=== PATIENT | male | born 1990 | race Caucasian/White ===

== ENCOUNTER 2016-09-18 09:22 | Emergency (ER) | payer SELFPAY ==
[2016-09-18] MEDS ORDERED: IBUPROFEN 600 MG TABLET PO ONE (09:47)
[2016-09-18] MEDS ORDERED: ONDANSETRON 4 MG TAB.RAPDIS SL ONE (09:48)
--- NOTE | 2016-09-18 09:49 | ER Document Report ---
ED Medical Screen (RME) - General Chief Complaint: Laceration Stated Complaint: WC/FINGER PAIN Time seen by provider: 09:47 Mode of Arrival: Ambulatory Information source: Patient TRAVEL OUTSIDE OF THE [place] IN LAST 30 DAYS: No - HPI Patient complains to provider of: right thumb laceration, syncopal episode with head injury Onset: Just prior to arrival Onset/Duration: Sudden Quality of pain: Achy Severity: Moderate Pain Level: 3 Exacerbated by: Denies Relieved by: Denies Notes: 09/18/16 09:48 Patient is a 26-year-old male who presents to the emergency room complaining of a laceration to his right common, states he was throwing a old toilet into a dumpster when he cut his hand on it, he immediately got nauseated and passed out , causing him to hit his head on the concrete ground, complaints of headache, with continued nausea, last tetanus shot was one year ago - Related Data Allergies/Adverse Reactions: No Known Allergies Allergy (Verified 09/18/16 09:41) Past Medical History - Past Medical History Cardiac Medical History: Denies: Hx Atrial Fibrillation, Hx Congestive Heart Failure, Hx Coronary Artery Disease, Hx DVT, Hx Heart Attack Pulmonary Medical History: Denies: Hx Asthma, Hx Bronchitis, Hx Pneumonia, Hx Intubation Neurological Medical History: Denies: Hx Cerebrovascular Accident, Hx Migraine, Hx Seizures Endocrine Medical History: Denies: Hx Diabetes Mellitus Type 1, Hx Diabetes Mellitus Type 2, Hx Graves' Disease Renal/ Medical History: Reports: Hx Kidney Stones. Denies: Hx Benign Prostatic Hyperplasia, Hx End Stage Renal Disease, Hx Epididymitis, Hx Peritoneal Dialysis Malignancy Medical History: Denies Hx Bone Cancer, Denies Hx Brain Cancer, Denies Hx Colorectal Cancer, Denies Hx Leukemia, Denies Hx Liver Cancer GI Medical History: Denies: Hx Cirrhosis, Hx Crohn's Disease, Hx Diverticulitis , Hx Gastritis, Hx Gastroesophageal Reflux Disease Musculoskeltal Medical History: Denies Hx Arthritis, Denies Hx Fibromyalgia, Denies Hx Gout, Denies Hx Multiple Sclerosis Skin Medical History: Denies Hx Cellulitis, Denies Hx Eczema, Denies Hx MRSA, Denies Hx Psoriasis Psychiatric Medical History: Denies: Hx Attention Deficit Hyperactivity Disorder, Hx Bipolar Disorder, Hx Borderline Personality Disorder Traumatic Medical History: Denies: Hx Fractures, Hx Gunshot Wound, Hx Liver Laceration, Hx Pneumothorax Infectious Medical History: Denies: Hx C-Diff, Hx HIV, Hx MRSA, Hx VRE Past Surgical History: Denies: Hx Abdominal Surgery, Hx Adenoidectomy, Hx Bowel Diversion - Immunizations Immunizations up to date: Yes Hx Diphtheria, Pertussis, Tetanus Vaccination: Yes Physical Exam - Vital signs Vitals: Temp Pulse Resp BP Pulse Ox 97.8 F 52 L 18 111/66 100 09/18/16 09:41 09/18/16 09:41 09/18/16 09:41 09/18/16 09:41 09/18/16 09:41 Course - Vital Signs Vital signs: Temp Pulse Resp BP Pulse Ox 97.8 F 52 L 18 111/66 100 09/18/16 09:41 09/18/16 09:41 09/18/16 09:41 09/18/16 09:41 09/18/16 09:41
[2016-09-18] MEDS ORDERED: LIDOCAINE 1% INJ-PF (10 MG/ML) 30 ML SDV INJ ONE (10:40)
--- NOTE | 2016-09-18 10:48 | ER Document Report ---
ED General - General Chief Complaint: Laceration Stated Complaint: WC/FINGER PAIN Time seen by provider: 10:42 Mode of Arrival: Ambulatory Information source: Patient Notes: 26-year-old male who was loading an old toilet in a dumpster when it broke the patient suffered a laceration from a sharp piece of porcelain on his right thumb. Incident occurred shortly prior to arrival. Patient says was copious bleeding at this time and he wrapped it and then felt faint and passed out for about 15 seconds. The patient reports he has passed out in the past at the site of blood and when he came to he had no confusion feels well now. He says he suffers superficial cut to his right eyebrow and fell but has no complaints now of pain except on his thumb. He reports being in normal state of health otherwise recently Physical Exam: General: Alert, appears well. HEENT: Normocephalic. 1 cm very superficial abrasion to the lateral right eyebrow with no active bleeding. There is slight surrounding ecchymosis area no bony deformities palpated face otherwise no raccoon eyes or Parikh sign no otorhinorrhea. PERRLA. Extraocular movements intact. Discs sharp no papilledema tympanic membranes and canals clear Oropharynx clear. Neck: Supple. Non-tender. Good range of motion without discomfort Respiratory: No respiratory distress. Clear and equal breath sounds bilaterally. Cardiovascular: Regular rate and rhythm. Abdominal: Normal Inspection. Soft, non-tender. No distension. Normal Bowel Sounds. Back: Non-tender. No deformity or step off. Extremities: All extremities warm with no gross deformities with the exception of the right thumb. There is a 1.5 cm laceration over the IP joint on the radial side with minimal active bleeding. 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 Normal Mood. Skin: Warm. Dry. Normal color. TRAVEL OUTSIDE OF THE [place] IN LAST 30 DAYS: No - Related Data Allergies/Adverse Reactions: No Known Allergies Allergy (Verified 09/18/16 09:41) Past Medical History - General Information source: Patient - Social History Smoking Status: Former Smoker Family History: Reviewed & Not Pertinent Patient has suicidal ideation: No Patient has homicidal ideation: No - Past Medical History Cardiac Medical History: Denies: Hx Atrial Fibrillation, Hx Congestive Heart Failure, Hx Coronary Artery Disease, Hx DVT, Hx Heart Attack Pulmonary Medical History: Denies: Hx Asthma, Hx Bronchitis, Hx Pneumonia, Hx Intubation Neurological Medical History: Denies: Hx Cerebrovascular Accident, Hx Migraine, Hx Seizures Endocrine Medical History: Denies: Hx Diabetes Mellitus Type 1, Hx Diabetes Mellitus Type 2, Hx Graves' Disease Renal/ Medical History: Reports: Hx Kidney Stones. Denies: Hx Benign Prostatic Hyperplasia, Hx End Stage Renal Disease, Hx Epididymitis, Hx Peritoneal Dialysis Malignancy Medical History: Denies Hx Bone Cancer, Denies Hx Brain Cancer, Denies Hx Colorectal Cancer, Denies Hx Leukemia, Denies Hx Liver Cancer GI Medical History: Denies: Hx Cirrhosis, Hx Crohn's Disease, Hx Diverticulitis , Hx Gastritis, Hx Gastroesophageal Reflux Disease Musculoskeltal Medical History: Denies Hx Arthritis, Denies Hx Fibromyalgia, Denies Hx Gout, Denies Hx Multiple Sclerosis Skin Medical History: Denies Hx Cellulitis, Denies Hx Eczema, Denies Hx MRSA, Denies Hx Psoriasis Psychiatric Medical History: Denies: Hx Attention Deficit Hyperactivity Disorder, Hx Bipolar Disorder, Hx Borderline Personality Disorder Traumatic Medical History: Denies: Hx Fractures, Hx Gunshot Wound, Hx Liver Laceration, Hx Pneumothorax Infectious Medical History: Denies: Hx C-Diff, Hx HIV, Hx MRSA, Hx VRE Past Surgical History: Denies: Hx Abdominal Surgery, Hx Adenoidectomy, Hx Bowel Diversion - Immunizations Immunizations up to date: Yes Hx Diphtheria, Pertussis, Tetanus Vaccination: Yes Review of Systems - Review of Systems Constitutional: denies: Chills, Fever EENT: denies: Ear pain, Throat pain Cardiovascular: Syncope. denies: Chest pain, Dyspnea Respiratory: denies: Cough, Short of breath, Wheezing Gastrointestinal: denies: Abdominal pain, Diarrhea, Nausea, Vomiting Genitourinary: denies: Burning Musculoskeletal: See HPI. denies: Back pain Skin: No symptoms reported Hematologic/Lymphatic: denies: Swollen glands Neurological/Psychological: denies: Weakness, Numbness Physical Exam - Vital signs Vitals: Temp Pulse Resp BP Pulse Ox 97.8 F 52 L 18 111/66 100 09/18/16 09:41 09/18/16 09:41 09/18/16 09:41 09/18/16 09:41 09/18/16 09:41 Course - Re-evaluation Re-evalutation: 09/18/16 12:17 Patient tolerated suture repair without difficulty he is instructed return in 7 days for suture removal - Vital Signs Vital signs: Temp Pulse Resp BP Pulse Ox 97.8 F 52 L 18 111/66 100 09/18/16 09:41 09/18/16 09:41 09/18/16 09:41 09/18/16 09:41 09/18/16 09:41 Procedures - Laceration/Wound Repair Right Thumb Wound length (cm): 1.5 Wound's Depth, Shape: Linear Laceration pre-procedure: Betadine prep applied, Sterile drapes applied Anesthetic type: 1% Lidocaine Volume Anesthetic (mLs): 1 Wound explored: Clean Irrigated w/ Saline (mLs): 30 - under high pressure from 25-gauge needle Wound Debrided: Minimal Wound Repaired With: Sutures Suture Size/Type: 4:0 Number of Sutures: 4 Layer Closure?: No Post-procedure wound care: Sterile dressing applied Post-procedure NV exam normal: Yes Complications: No Notes: 09/18/16 12:17 Wound base was easily visualized. There is moderate venous bleeding during exploration is easily controlled after suture repair. No foreign bodies were identified Discharge - Discharge Clinical Impression: Laceration Condition: Stable Disposition: HOME, SELF-CARE Instructions: Laceration Care ([facility]) Additional Instructions: Return to emergency department in 7 days for suture removal or earlier for redness or swelling to the area of the laceration
[2016-09-18 13:09] VITALS: BP 115/62
== END 2016-09-18 13:00 | disposition home or self-care (01) ==
LOC: ER 09:22
PROC: 0HQFXZZ Repair Right Hand Skin, External Approach (ICD-10-PCS; principal; 2016-09-18)
DX: S61.011A Laceration without foreign body of right thumb without damage to nail, initial encounter (principal); W45.8XXA Other foreign body or object entering through skin, initial encounter; Y93.89 Activity, other specified; Y99.0 Civilian activity done for income or pay; S00.11XA Contusion of right eyelid and periocular area, initial encounter; W19.XXXA Unspecified fall, initial encounter; R55 Syncope and collapse; Z87.891 Personal history of nicotine dependence
CPT/HCPCS: 99283; 70450; 12001; S0119

== ENCOUNTER 2016-11-29 09:34 | Emergency (ER) | payer SELFPAY ==
--- NOTE | 2016-11-29 10:07 | ER Document Report ---
ED Headache - General Chief Complaint: Headache Stated Complaint: HEADACHE Time Seen by Provider: 11/29/16 09:47 Mode of Arrival: Ambulatory Information source: Patient Notes: 26-year-old male presents to ED for complaint of a headache that gets worse when he stands or bends forward. States she was having sex 5 days ago with his and ultimately he felt a tremendous pop in the back of his head so he jumped up and then fell down to his knees. The only time he gets any relief from the headache is when he is sitting up pain in his head back but he still has some of the headache then. Any history of headaches before this. TRAVEL OUTSIDE OF THE [place] IN LAST 30 DAYS: No - HPI Patient complains to provider of: Headache Patient reports: Other - Headache since feeling a pop in the back of his head during sex Onset: Other - 5 days ago Onset was: Abrupt Timing: Still present - When he stands up or leans forward Quality of pain: Sharp, Throbbing Severity: Moderate Pain Level: 4 - Related Data Allergies/Adverse Reactions: No Known Allergies Allergy (Verified 09/18/16 09:41) Past Medical History - General Information source: Patient - Social History Smoking Status: Current Every Day Smoker Cigarette use (# per day): Yes - Pack per day Chew tobacco use (# tins/day): No Smoking Education Provided: Yes - Less than 2 minutes Frequency of alcohol use: Rare Drug Abuse: None 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 denies: CAD, COPD, CVA, DM, Hyperlipidemia Patient has suicidal ideation: No Patient has homicidal ideation: No - Past Medical History Cardiac Medical History: Reports: None Pulmonary Medical History: Reports: None EENT Medical History: Reports: None Neurological Medical History: Reports: None Endocrine Medical History: Reports: None Renal/ Medical History: Reports: Hx Kidney Stones Malignancy Medical History: Reports None GI Medical History: Reports: None Musculoskeltal Medical History: Reports Hx Arthritis Skin Medical History: Reports None Psychiatric Medical History: Reports: None Traumatic Medical History: Reports: Hx Fractures - Fractured fourth and fifth finger Infectious Medical History: Reports: None Surgical Hx: Negative Past Surgical History: Reports: None - Immunizations Immunizations up to date: Yes Hx Diphtheria, Pertussis, Tetanus Vaccination: Yes Review of Systems - Review of Systems Constitutional: No symptoms reported EENT: No symptoms reported Cardiovascular: No symptoms reported Respiratory: No symptoms reported Gastrointestinal: No symptoms reported Genitourinary: No symptoms reported Male Genitourinary: No symptoms reported Musculoskeletal: No symptoms reported Skin: No symptoms reported Hematologic/Lymphatic: No symptoms reported Neurological/Psychological: Headaches -: Yes All other systems reviewed and negative Physical Exam - Vital signs Vitals: Temp Pulse Resp BP Pulse Ox 98.1 F 87 14 124/80 98 11/29/16 09:36 11/29/16 09:36 11/29/16 09:36 11/29/16 09:36 11/29/16 09:36 Interpretation: Normal - General General appearance: Appears well, Alert - HEENT Head: Normocephalic, Atraumatic Eyes: Normal Pupils: PERRL Visual reilly normal: Yes Ears: Normal External canal: Normal Tympanic membrane: Normal Sinus: Normal Nasal: Normal Mouth/Lips: Normal Mucous membranes: Normal Pharynx: Normal Neck: Normal - Respiratory Respiratory status: No respiratory distress Chest status: Nontender Breath sounds: Normal Chest palpation: Normal - Cardiovascular Rhythm: Regular Heart sounds: Normal auscultation Murmur: No - Abdominal Inspection: Normal Distension: No distension Bowel sounds: Normal Tenderness: Nontender Organomegaly: No organomegaly - Back Back: Normal, Nontender - Extremities General upper extremity: Normal inspection, Nontender, Normal color, Normal ROM , Normal temperature General lower extremity: Normal inspection, Nontender, Normal color, Normal ROM , Normal temperature, Normal weight bearing. No: Kyra's sign - Neurological Neuro grossly intact: Yes Cognition: Normal Orientation: AAOx4 [place] Coma Scale Eye Opening: Spontaneous [place] Coma Scale Verbal: Oriented [place] Coma Scale Motor: Obeys Commands [place] Coma Scale Total: 15 Speech: Normal Cranial nerves: Normal Cerebellar coordination: Normal Motor strength normal: LUE, RUE, LLE, RLE Babinski reflex: Normal (flexor plantar) Sensory: Normal Biceps - Reflex grade: 2 = Normal Triceps - Reflex grade: 2 = Normal Brachioradialis - Reflex grade: 2 = Normal Knee - Reflex grade: 2 = Normal Ankle - Reflex grade: 2 = Normal - Psychological Associated symptoms: Normal affect, Normal mood - Skin Skin Temperature: Warm Skin Moisture: Dry Skin Color: Normal Course - Re-evaluation Re-evalutation: 11/29/16 10:27 Had negative. Will instruct patient to use ibuprofen and Tylenol for his headache will write a prescription for ibuprofen and to follow-up with his primary doctor. Consulted Dr. Kumar. He states if the patient is negative CT and negative neuro assessment 5 days out and he should be safe to send home but to have follow-up if his headache continues. Discharged home with prescription for ibuprofen. - Vital Signs Vital signs: Temp Pulse Resp BP Pulse Ox 98.1 F 87 14 124/80 98 11/29/16 09:36 11/29/16 09:36 11/29/16 09:36 11/29/16 09:36 11/29/16 09:36 - Diagnostic Test Radiology reviewed: Image reviewed, Reports reviewed Discharge - Discharge Clinical Impression: Headache Qualifiers: Headache type: unspecified Headache chronicity pattern: unspecified pattern Intractability: not intractable Qualified Code(s): R51 - Headache Condition: Stable Disposition: HOME, SELF-CARE Instructions: Family Physicians / Practices Additional Instructions: HEADACHE: The physician does not feel that the headache you are experiencing has a serious underlying cause. Most headaches are due to emotional stress, with resultant muscle tension (tension headache). Occasionally, headaches are secondary to changes in the blood vessels of the scalp (vascular headache and migraine headache). Sometimes, a headache is the first symptom of another developing illness, such as a viral infection. You have no evidence of stroke, bleeding, meningitis, or other serious cause of your headache. The treatment of headaches varies with the severity and cause of the pain. Not all headaches need pain shots. In fact, there is evidence that using narcotics for headaches may make them worse in the long run. The physician will determine the therapy that's in your best interest. If you develop a fever, if the headache is different from any you've previously experienced, or if the headache progressively worsens, then call your physician at once or go to the emergency room. Acetaminophen Acetaminophen may be taken for pain relief or fever control. It's much safer than aspirin, offering a wider range of "safe" dosages. It is safe during . Some brand names are Tylenol, Panadol, Datril, Anacin 3, Tempra, and Liquiprin. Acetaminophen can be repeated every four hours. The following are maximum recommended dosages: WEIGHT Dose Drops Elixir Chewable( 80mg) (LBS.) drprs=droppers tsp=teaspoon 6 40 mg .4 ml (1/2) 6-11 80 mg .8 ml (full) 1/2 tsp 1 tab 12-16 120 mg 1 1/2 drprs 3/4 tsp 1 1/2 tabs 17-23 160 mg 2 drprs 1 tsp 2 tabs 24-30 240 mg 3 drprs 1 1/2 tsp 3 tabs 30-35 320 mg 2 tsp 4 tabs 36-41 360 mg 2 1/4 tsp 4 1 /2 tabs 42-47 400 mg 2 1/2 tsp 5 tabs 48-53 480 mg 3 tsp 6 tabs 54-59 520 mg 3 1/4 tsp 6 1 /2 tabs 60-64 560 mg 3 1/2 tsp 7 tabs 65-70 600 mg 3 3/4 tsp 7 1 /2 tabs 71-76 640 mg 4 tsp 8 tabs 77-82 720 mg 4 1/2 tsp 9 tabs 83-88 800 mg 5 tsp 10 tabs >89 pounds or adults 650 mg to 900 mg Acetaminophen can be repeated every four hours. Maximum daily dose not to exceed 4000 mg. These maximum recommended dosages are slightly higher than the dosages written on the product container, but these dosages are very safe and well below the toxic dosage for acetaminophen. FOLLOW-UP CARE: If you have been referred to a physician for follow-up care, call the physician s office for an appointment as you were instructed or within the next two days. If you experience worsening or a significant change in your symptoms, notify the physician immediately or return to the Emergency Department at any time for re-evaluation. Prescriptions: Ibuprofen 800 mg PO Q8HP PRN #14 tablet PRN Reason: Forms: Smoking Cessation Education, Return to Work
--- NOTE | 2016-11-29 10:21 | RADIOLOGY REPORT (SQ) ---
EXAM DESCRIPTION: CT HEAD WITHOUT COMPLETED DATE/TIME: 11/29/2016 10:09 am REASON FOR STUDY: "pop" in back of head continued pain COMPARISON: None. TECHNIQUE: Axial images acquired through the brain without intravenous contrast. Images reviewed wi th bone, brain and subdural windows. Images stored on PACS. All CT scanners at this facility use dose modulation, iterative reconstruction, and/or weight based d osing when appropriate to reduce radiation dose to as low as reasonably achievable (ALARA). [facility]: Dose Right [facility]: CareDose [facility]: Dose Right [facility]: Teradose 4D [facility]: Flomio RADIATION DOSE: Up-to-date CT equipment and radiation dose reduction techniques were employed. CTDIv ol: 64.6 mGy. DLP: 1034 mGy-cm. mGy. LIMITATIONS: None. FINDINGS: VENTRICLES: Normal size and contour. CEREBRUM: No masses. No hemorrhage. No midline shift. Normal bowling/white matter differentiation. N o evidence for acute infarction. CEREBELLUM: No masses. No hemorrhage. No alteration of density. No evidence for acute infarction. EXTRAAXIAL SPACES: No fluid collections. No masses. ORBITS AND GLOBE: No intra- or extraconal masses. Normal contour of globe without masses. CALVARIUM: No fracture. PARANASAL SINUSES: No fluid or mucosal thickening. SOFT TISSUES: No mass or hematoma. OTHER: No other significant finding. IMPRESSION: NORMAL BRAIN CT WITHOUT CONTRAST. TECHNICAL DOCUMENTATION: JOB ID: [id number] Quality ID # [id number]: Final reports with documentation of one or more dose reduction techniques (e.g., Au tomated exposure control, adjustment of the mA and/or kV according to patient size, use of iterative reconstruction technique) 2010 [employer]- All Rights Reserved
[2016-11-29 10:46] VITALS: BP 109/68
== END 2016-11-29 10:47 | disposition home or self-care (01) ==
LOC: ER 09:34
DX: R51 Headache (principal); F17.210 Nicotine dependence, cigarettes, uncomplicated; Z87.442 Personal history of urinary calculi
CPT/HCPCS: 70450; 99284

== ENCOUNTER 2018-09-17 22:10 | Emergency (ER) | payer OTHER ==
--- NOTE | 2018-09-17 22:56 | RADIOLOGY REPORT (SQ) ---
EXAM DESCRIPTION: XR HAND 3 OR MORE VIEWS COMPLETED DATE/TME: 09/17/2018 00:00 CLINICAL HISTORY: 28 years, Male, injury COMPARISON: None. NUMBER OF VIEWS: 3 TECHNIQUE: 3 view right hand LIMITATIONS: None. FINDINGS: There is an old healed fracture of the fifth metacarpal. Subtle lucency associated with the base of the fourth metacarpal, suspicious for nondisplaced fracture. Correlate with site of pain. Mild soft tissue swelling. IMPRESSION: Nondisplaced fracture of the base of the fourth metacarpal. Old fifth metacarpal fracture. copyright 2010 [employer] All Rights Reserved
[2018-09-17] MEDS ORDERED: IBUPROFEN 600 MG TABLET PO ONE (23:28)
--- NOTE | 2018-09-18 00:05 | ER Document Report ---
HPI - HPI Patient complains to provider of: right hand pain Time Seen by Provider: 09/17/18 23:28 Pain Level: 3 Context: Patient is a 28-year-old male presents to the emergency department for right hand. Patient states at 9:00 this morning he punched a door. States he has had pain in the dorsal aspect of his medial left hand which is why he presents to the emergency department. Patient states he has a history of a fracture to his right hand in the past. States he is unsure exactly where the fracture was located. Patient is denying any injuries or any other trauma. Past Medical History - General Information source: Patient - Social History Smoking Status: Unknown if Ever Smoked Family History: Arthritis, Hypertension, Malignancy, Thyroid Disfunction. denies: CAD, COPD, CVA, DM, Hyperlipidemia - Past Medical History Cardiac Medical History: Denies: Hx Atrial Fibrillation, Hx Congestive Heart Failure, Hx Heart Attack Pulmonary Medical History: Denies: Hx Asthma, Hx Bronchitis, Hx Pneumonia Neurological Medical History: Denies: Hx Migraine, Hx Seizures Endocrine Medical History: Denies: Hx Diabetes Mellitus Type 1, Hx Diabetes Mellitus Type 2 Renal/ Medical History: Reports: Hx Kidney Stones. Denies: Hx End Stage Renal Disease, Hx Peritoneal Dialysis GI Medical History: Denies: Hx Gastroesophageal Reflux Disease Musculoskeletal Medical History: Reports Hx Arthritis Psychiatric Medical History: Denies: Hx Attention Deficit Hyperactivity Disorder, Hx Bipolar Disorder Traumatic Medical History: Reports: Hx Fractures - Fractured fourth and fifth finger Past Surgical History: Denies: Hx Abdominal Surgery - Immunizations Immunizations up to date: Yes Hx Diphtheria, Pertussis, Tetanus Vaccination: Yes Vertical Provider Document - CONSTITUTIONAL Agree With Documented VS: Yes Notes: GENERAL: Alert, interacts well. No acute distress. HEAD: Normocephalic, atraumatic. EYES: Pupils equal, round, and reactive to light. Extraocular movements intact. ENT: Oral mucosa moist, tongue midline. NECK: Full range of motion. Supple. Trachea midline. LUNGS: Clear to auscultation bilaterally, no wheezes, rales, or rhonchi. No respiratory distress. HEART: Regular rate and rhythm. No murmur ABDOMEN: Soft, non-tender. Non-distended. Bowel sounds present in all 4 quadrant s. EXTREMITIES: Moves all 4 extremities spontaneously. normal radial and dorsalis pedis pulses bilaterally. No cyanosis. Swelling and minor L ecchymosis noted dorsal aspect medial right hand. Full range of motion right wrist and all 5 fingers on the right hand. Patient is able to make a fist fully extend all fingers. Capillary refill less than 2 seconds distally all 5 fingers right hand. BACK: no cervical, thoracic, lumbar midline tenderness. No saddle anesthesia, normal distal neurovascular exam. NEUROLOGICAL: Alert and oriented x3. Normal speech. cranial nerves II through XII grossly intact PSYCH: Normal affect, normal mood. SKIN: Warm, dry, normal turgor. No rashes or lesions noted. - INFECTION CONTROL TRAVEL OUTSIDE OF THE [place] IN LAST 30 DAYS: No Course - Re-evaluation Re-evalutation: 09/18/18 00:03 Hand X-Ray 09/17/18 00:00 IMPRESSION: Nondisplaced fracture of the base of the fourth metacarpal. Old fifth metacarpal fracture. copyright 2010 [employer]- All Rights Reserved Ulnar gutter placed patient's right upper extremity. Discussed close follow-up with orthopedics. Patient stable for discharge. - Vital Signs Vital signs: Temp Pulse Resp BP Pulse Ox 97.8 F 62 18 122/80 98 09/17/18 22:44 09/17/18 22:44 09/17/18 22:44 09/17/18 22:44 09/17/18 22:44 Procedures - Immobilization Right upper extremity Pre-Proc Neuro Vasc Exam: Normal Immobilizer type: Ulnar Performed by: Provider assisted Post-Proc Neuro Vasc Exam: Normal Alignment checked and good: Yes Discharge - Discharge Clinical Impression: Fracture of fourth metacarpal bone of right hand Qualifiers: Encounter type: initial encounter Fracture type: closed Metacarpal location: base Fracture alignment: nondisplaced Qualified Code(s): S62.344A - Nondisplaced fracture of base of fourth metacarpal bone, right hand, initial encounter for closed fracture Condition: Stable Disposition: HOME, SELF-CARE Instructions: Fractured Metacarpal ([facility]) Additional Instructions: As we discussed you have been seen and treated in the emergency department for fracture to your right hand. Please make sure you are ulnar gutter splint until you follow-up with orthopedics. Phone numbers and addresses will be provided in this packet. Please make sure you take [id number] Tylenol or Motrin for generalized pain. Please return to the emergency room for any other concerning symptoms. Forms: Return to Work Referrals: LATISHA KLEIN, [ACTIVE STAFF] - Follow up as needed
[2018-09-18 00:22] VITALS: BP 111/79
== END 2018-09-18 00:32 | disposition home or self-care (01) ==
LOC: ER 22:10
DX: S62.344A Nondisplaced fracture of base of fourth metacarpal bone, right hand, initial encounter for closed fracture (principal); W22.8XXA Striking against or struck by other objects, initial encounter
CPT/HCPCS: 99283

== ENCOUNTER 2018-09-29 08:00 | Emergency (ER) | payer OTHER ==
[2018-09-29 08:06] VITALS: BP 118/73
--- NOTE | 2018-09-29 08:54 | ER Document Report ---
ED Oral Problem - General Chief Complaint: Dental Injury Stated Complaint: BROKEN TOOTH Time Seen by Provider: 09/29/18 08:54 TRAVEL OUTSIDE OF THE [place] IN LAST 30 DAYS: No - HPI Notes: 8/10 throbbing right upper premolar pain sharp in nature without radiation nothing because it better or worse. Patient has known poor dentition and previously broken tooth. Patient scheduled to see his dentist in 3 days. But says the pain is getting so bad not sure what he can do. Denies fever chills facial swelling or other symptoms. - Related Data Allergies/Adverse Reactions: No Known Allergies Allergy (Verified 09/18/16 09:41) Past Medical History - Social History Smoking Status: Unknown if Ever Smoked Family History: Arthritis, Hypertension, Malignancy, Thyroid Disfunction. denies: CAD, COPD, CVA, DM, Hyperlipidemia - Past Medical History Cardiac Medical History: Denies: Hx Atrial Fibrillation, Hx Congestive Heart Failure, Hx Heart Attack Pulmonary Medical History: Denies: Hx Asthma, Hx Bronchitis, Hx Pneumonia Neurological Medical History: Denies: Hx Migraine, Hx Seizures Endocrine Medical History: Denies: Hx Diabetes Mellitus Type 1, Hx Diabetes Mellitus Type 2 Renal/ Medical History: Reports: Hx Kidney Stones. Denies: Hx End Stage Renal Disease, Hx Peritoneal Dialysis GI Medical History: Denies: Hx Gastroesophageal Reflux Disease Musculoskeletal Medical History: Reports Hx Arthritis Psychiatric Medical History: Denies: Hx Attention Deficit Hyperactivity Disorder, Hx Bipolar Disorder Traumatic Medical History: Reports: Hx Fractures - Fractured fourth and fifth finger Past Surgical History: Denies: Hx Abdominal Surgery - Immunizations Immunizations up to date: Yes Hx Diphtheria, Pertussis, Tetanus Vaccination: Yes Review of Systems - Review of Systems EENT: Dental problem Physical Exam - Vital signs Vitals: Temp Pulse Resp BP Pulse Ox 97.8 F 63 17 118/73 100 09/29/18 08:05 09/29/18 08:05 09/29/18 08:05 09/29/18 08:05 09/29/18 08:05 - Notes Notes: PHYSICAL EXAMINATION: GENERAL: Well-appearing, well-nourished and in no acute distress. HEAD: Atraumatic, normocephalic. EYES: Pupils equal round and reactive to light, extraocular movements intact, sclera anicteric, conjunctiva are normal. ENT: Poor dentition throughout no swelling or fluctuance noted mouth, no facial asymmetry NECK: Normal range of motion, supple without lymphadenopathy NEUROLOGICAL: Cranial nerves grossly intact. Normal speech, normal gait. Normal sensory and motor exams. PSYCH: Normal mood, normal affect. SKIN: Warm, Dry, normal turgor, no rashes or lesions noted. Course - Re-evaluation Re-evalutation: 09/29/18 08:57 28-year-old male presents with dental pain. No signs of infection no swelling no fluctuance noted. Will be given penicillin and analgesia. - Vital Signs Vital signs: Temp Pulse Resp BP Pulse Ox 97.8 F 63 17 118/73 100 09/29/18 08:05 09/29/18 08:05 09/29/18 08:05 09/29/18 08:05 09/29/18 08:05 Discharge - Discharge Clinical Impression: Pain, dental Disposition: HOME, SELF-CARE Instructions: Toothache ([facility]) Additional Instructions: See your dentist on Friday Prescriptions: Ibuprofen [Motrin 600 mg Tablet] 600 mg PO Q8HP PRN #30 tablet PRN Reason: Penicillin V Potassium [Penicillin Vk 500 mg Tablet] 500 mg PO BID #20 tablet
== END 2018-09-29 09:18 | disposition home or self-care (01) ==
LOC: ER 08:00
DX: K08.9 Disorder of teeth and supporting structures, unspecified (principal); Z87.442 Personal history of urinary calculi
CPT/HCPCS: 99282